=== PATIENT | male | born 1985 | race Caucasian/White ===

== ENCOUNTER → 2021-02-23 | Outpatient (CLI) | payer OTHER | END | disposition home or self-care (01) | LOC: LAB 13:03 → LAB SHORT 13:03 | DX: J02.9 Acute pharyngitis, unspecified (principal) | CPT/HCPCS: 87081 ==

== ENCOUNTER → 2021-04-28 | Outpatient (CLI) | payer OTHER ==
[2021-04-30 16:22] LABS: CORONAVIRUS (COVID19) CSH-NRL Negative (Negative)
== END | disposition home or self-care (01) ==
LOC: LAB 19:02 → LAB SHORT 19:02
PROVIDERS: Physician Assistant
DX: Z20.822 Contact with and (suspected) exposure to COVID-19 (principal)
CPT/HCPCS: U0003

== ENCOUNTER 2021-11-26 09:12 | Day surgery (SDC) | payer OTHER ==
[~2021-11-26] VITALS: Ht 177.8 cm; Wt 72.2 kg
--- NOTE | 2021-11-26 11:35 | NUR ---
11/26/21 1135 Maris Cheung 0.15ML OF EPI 1MG/ML ADDED TO 30ML OF BUPIVICAINE 0.5% TO CREATE A SOLUTION OF BUPIVICAINE 0.5% WITH EPI 1:200,000. SUBCLAVICULAR BLOCK PLACED IN OR BY DR. WHELAN WITHOUT DIFFICULTY. PT TOLERATED PROCEDURE WELL.
== END 2021-11-26 13:11 | disposition home or self-care (01) ==
LOC: ORSCSDS 09:12
PROVIDERS: Orthopaedic Surgery
PROC: 0LQ40ZZ Repair Left Upper Arm Tendon, Open Approach (ICD-10-PCS; principal; 2021-11-26 10:45)
DX: S46.212A Strain of muscle, fascia and tendon of other parts of biceps, left arm, initial encounter (principal); F41.8 Other specified anxiety disorders; Z86.16 Personal history of COVID-19; Z87.891 Personal history of nicotine dependence; X58.XXXA Exposure to other specified factors, initial encounter
CPT/HCPCS: C1713; J0171; J0690; J1100; J1885; J2250; J2405; J2704; J3010; J7120

== ENCOUNTER 2022-06-11 07:35 | Day surgery (SDC) | payer OTHER ==
[~2022-06-11] VITALS: Ht 180.3 cm; Wt 73.4 kg
[2022-06-11] MEDS ORDERED: MOBIC15 MG (08:09)
--- NOTE | 2022-06-11 11:29 | NUR ---
06/11/22 1129 SHAN RAMIREZ PT IN CHAIR, EATING AND DRINKING. STATES THAT ARM IS NUMB AND FEELING IS ANNOYING... STATES PAIN 4/10 WHEN NOT MOVING- PIN/PRICKLY FEELING. WITH MOVEMENT, 6-7/10. WILL GIVE PAIN MEDICATION (PO) PRIOR TO DISCHARGE.
== END 2022-06-11 12:10 | disposition home or self-care (01) ==
LOC: ORSCSDS 07:35
PROVIDERS: Orthopaedic Surgery
PROC: 0KN80ZZ Release Left Upper Arm Muscle, Open Approach (ICD-10-PCS; principal; 2022-06-11 09:00)
DX: S46.212D Strain of muscle, fascia and tendon of other parts of biceps, left arm, subsequent encounter (principal); Z87.891 Personal history of nicotine dependence
CPT/HCPCS: A9270; C1713; J0171; J0690; J1100; J1885; J2250; J2405; J2704; J2795; J3010; J7120

== ENCOUNTER 2024-03-05 15:34 | Emergency (ER) | payer OTHER ==
[~2024-03-05] VITALS: Ht 177.8 cm; Wt 63.5 kg
[~2024-03-05 15:34] MED LIST: MOBIC15 MG
[2024-03-05 16:10] VITALS: BP 101/61
[2024-03-05] MEDS ORDERED: HYDROcodone 5-APAP 325 TAB PO ONE (20:55)
[2024-03-05] MEDS ORDERED: Ketorolac Tromethamine 15mg Vial IM ONE (20:55)
== END 2024-03-05 21:11 | disposition home or self-care (01) ==
LOC: ER 15:34
DX: S46.211A Strain of muscle, fascia and tendon of other parts of biceps, right arm, initial encounter (principal); X58.XXXA Exposure to other specified factors, initial encounter; Z79.899 Other long term (current) drug therapy; Z88.8 Allergy status to other drugs, medicaments and biological substances; Z88.5 Allergy status to narcotic agent
CPT/HCPCS: 73080; 76882; 96372; 99284-25; A9270; J1885